=== PATIENT | female | born 1955 | race Caucasian/White ===

== ENCOUNTER 2024-05-09 11:28 | Emergency (ER) | payer OTHER ==
[~2024-05-09] VITALS: Ht 162.6 cm; Wt 96.4 kg
[2024-05-09] MEDS ORDERED: MOXI3DRO25 EACHEYE (14:01)
[2024-05-09 14:06] VITALS: BP 110/70; PULSE 80; RESP 16; TEMP 98.2; O2SAT 97
== END 2024-05-09 14:07 | disposition home or self-care (01) ==
LOC: ER 11:29
DX: H10.89 Other conjunctivitis (principal)
CPT/HCPCS: 99283

== ENCOUNTER 2025-04-03 09:36 | Emergency (ER) | payer SELFPAY ==
[~2025-04-03] VITALS: Ht 152.4 cm; Wt 85.9 kg
[~2025-04-03 09:36] MED LIST: MOXI3DRO25 EACHEYE
[2025-04-03 09:48] VITALS: TEMP 96.7
--- NOTE | 2025-04-03 10:25 | RADIOLOGY REPORT ---
DI ANKLE, COMPLETE(3VW MIN), INDICATION: ANKLE PAIN,RIGHT TECHNICAL DATA:Frontal , oblique and lateral views were obtained of the right ankle. COMPARISON: None FINDINGS: Nondisplaced distal fibula fracture. Joint spaces are maintained. Alignment is anatomic. Soft tissues are swollen. IMPRESSION: Nondisplaced distal fibula fracture.
--- NOTE | 2025-04-03 11:01 | ELECTROCARDIOGRAPH REPORT ---
[facility] Test Date: 2025-04-03 Test Time: 10:59:27 Pat Name: JUSTIN THURSTON Department: [facility] Patient ID: [id number] Room: Gender: [place] [employer]: : 1955 Requested By: CHERRI DAVEY Order Number: [id number] Reading MD: Dr. Iván London Measurements Intervals [place] Rate: 79 P: 46 NM: 134 QRS: 26 QRSD: 92 T: 35 QT: 357 QTc: 410 Interpretive Statements Sinus rhythm Low voltage, precordial leads Electronically Signed On 04-05-2025 19:18:[address] Iván London Please click the below link to view image of tracing.
[2025-04-03 12:13] VITALS: BP 111/67; PULSE 89; RESP 18; O2SAT 98
--- NOTE | 2025-04-03 12:36 | Physician Documentation ---
History of Present Illness ~ General Chief Complaint: Multiple Medical Complaints Stated Complaint: R ANKLE PAIN Time Seen by MD: 10:41 History of Present Illness Initial Comments Patient is seen today with complaints of having possibly have an syncopal episode yesterday. Patient states she does take propranolol for resting tremor. Patient states she was at [employer] yesterday and had a stand for about an hour and a half and she states she has been feeling a little lightheaded especially when standing from a seated position over the last few months. She states she has been on a new diet in that possibly is contributing. She states she was leaning over on the wall after standing for over an hour and then she bout her head and lifted her head up and then she bone herself on the floor with the pain of her right ankle and her surrounding friend said she had a syncopal episode. She denies any chest pain or shortness of breath or abdominal pain or nausea, vomiting, diarrhea. Patient has no other concern or complaint at this time. She states there paramedics on scene yesterday that told her her blood pressure was quite low. She has no other concern or complaint at this time. She also did have blood work drawn a few days ago and was told that was unremarkable. Medication Reconciliation Allergies: Coded Allergies: No Known Allergies (Unverified , 04/03/25) Scheduled Moxifloxacin Hcl (Vigamox), 1 DROP EACHEYE Q8H Review of Systems Constitutional: Denies: chills, fever, weakness Eyes: Denies: pain, blurred vision ENT: Denies: ear pain, nose pain, throat pain, mouth pain Respiratory: Denies: cough, shortness of breath Cardiovascular: Denies: chest pain, palpitations Gastrointestinal: Denies: abdominal pain, nausea, vomiting Genitourinary: Denies: burning, dysuria Female Genitalia: Denies: vaginal discharge, pelvic pain Neurological: Denies: headache, dizziness Musculoskeletal: Denies: pain, swelling Integumentary: Denies: rash, lesions Allergic/Immunologic: Denies: hives, itching Hematologic/Lymphatic: Denies: no symptoms reported Psychiatric: Denies: depression, anxiety Physical Exam Physical Exam Vital Signs: Temperature: 96.7, Source: Oral, Heart Rate: 89, Respiratory Rate: 18, BP: 111/67, Pulse Oximetry: 98, Weight: 85.910 Oxygen Flow Rate: 0 Physical Exam General: Awake and Alert, no acute distress. HEENT: Conjunctiva pink, Sclera clear, Mucus Membranes moist. Neck: Supple without masses and tenderness. Resp: Unlabored. Lungs clear to auscultation bilaterally. Heart: Regular Rate and rhythm, normal S1 and S2 without murmur, rub or gallop. Musculoskeletal: Patient on exam has significant swelling and tenderness to palpation of the right lateral ankle with decreased range of motion. Patient is neurovascularly intact distally. Motor function intact. Extremities: No cyanosis,clubbing or edema. Skin: Warm and Dry. Progress Results/Orders Results/Orders Orders - CHERRI DAVEY PAC Ankle, Complete(3vw Min) (04/03/25 10:13) Completed Orders - CHERRI DAVEY PAC Ankle, Complete(3vw Min) (04/03/25 10:13) Electrocardiogram (04/03/25 10:56) Vital Signs 04/03/25 04/03/25 09:48 12:13 Temp 96.7 Pulse 98 89 Resp 18 18 B/P (MAP) 119/72 111/67 (82) Pulse Ox 99 98 O2 Flow Rate 0 EKG/XRAY/CT/US/VASC/MRI EKG : Additional Comment EKG interpreted by myself today shows regular rate at 79 beats per minute, normal sinus rhythm, no ST segment elevation, no axis deviation. Bone/Soft Tissue X-Ray (Ext.) : Additional Comment X-ray of right ankle interpreted by myself today shows nondisplaced distal fibular fracture, bones are otherwise in anatomic alignment, no osteolytic or blastic lesions. DIAGNOSTIC RADIOLOGY Patient: JUSTIN THURSTON Medical Record: [id number] [facility] : 1955, Age: 69 Sex: Female Location: ER Patient Status: REG ER Service Date/Time: 04/03/25/ 1013 Ordering Physician: DAVEY, CHERRI R PAC Exam: ANKLE, COMPLETE(3VW MIN) DI ANKLE, COMPLETE(3VW MIN), INDICATION: ANKLE PAIN,RIGHT TECHNICAL DATA:Frontal , oblique and lateral views were obtained of the right ankle. COMPARISON: None FINDINGS: Nondisplaced distal fibula fracture. Joint spaces are maintained. Alignment is anatomic. Soft tissues are swollen. IMPRESSION: Nondisplaced distal fibula fracture. Electronically Signed by:CHRISTOPHER MARTINEZ MD Date & Time: 04/03/25 102 Dictated by: CHRISTOPHER MARTINEZ MD Dictation date and time: 04/03/25 102 Primary Care Provider: NO PRIMARY CARE PROVIDER cc: CHERRI DAVEY PAC ~ Medical Decision Making Findings Patient is seen today with complaints of having possibly have an syncopal episode yesterday. Patient states she does take propranolol for resting tremor. Patient states she was at [employer] yesterday and had a stand for about an hour and a half and she states she has been feeling a little lightheaded especially when standing from a seated position over the last few months. She states she has been on a new diet in that possibly is contributing. She states she was leaning over on the wall after standing for over an hour and then she bout her head and lifted her head up and then she bone herself on the floor with the pain of her right ankle and her surrounding friend said she had a syncopal episode. She denies any chest pain or shortness of breath or abdominal pain or nausea, vomiting, diarrhea. Patient has no other concern or complaint at this time. She states there paramedics on scene yesterday that told her her blood pressure was quite low. She has no other concern or complaint at this time. Patient did have EKG that was unremarkable. X-ray of right ankle showed nondisplaced fracture of the right distal fibula. Patient was placed in a walking boot and given crutches and will be nonweightbearing for a few days and will rest, ice, elevate every 30 minutes to 60 minutes. Patient will follow up with cam specialist for further eval and treatment in 7-10 days if no better as needed sooner. Return to ED with any worsening, concerning or changing symptoms. I recommended patient discontinue her propranolol and follow up with her primary care and possibly get referral to Cardiology for further eval and treatment. Departure Disposition: HOME / SELF CARE / HOMELESS Impression: Primary Impression: Fibula fracture Qualified Codes: S82.831A - Other fracture of upper and lower end of right fibula, initial encounter for closed fracture Condition: Improved Discharge Instructions: Ankle Fracture, [id number] Additional Instructions: Patient did have EKG that was unremarkable. X-ray of right ankle showed nondisplaced fracture of the right distal fibula. Patient was placed in a walking boot and given crutches and will be nonweightbearing for a few days and will rest, ice, elevate every 30 minutes to 60 minutes. Patient will follow up with cam specialist for further eval and treatment in 7-10 days if no better as needed sooner. Return to ED with any worsening, concerning or changing symptoms. I recommended patient discontinue her propranolol and follow up with her primary care and possibly get referral to Cardiology for further eval and treatment. Referrals: NO PRIMARY CARE PROVIDER (PCP) Additional Comment Additional Comment Patient declined admission to the hospital at this time today. Signature Scribe Signature: No scribe Attestation: No scribe CHERRI DAVEY PAC Apr 03, 2025 12:36
== END 2025-04-03 13:02 | disposition home or self-care (01) ==
LOC: ER 09:36
DX: S82.831A Other fracture of upper and lower end of right fibula, initial encounter for closed fracture (principal); Z79.899 Other long term (current) drug therapy; W22.8XXA Striking against or struck by other objects, initial encounter; Y93.89 Activity, other specified; Y92.22 Religious institution as the place of occurrence of the external cause; Y99.8 Other external cause status
CPT/HCPCS: 73610; 93005; 99284; L4360